=== PATIENT | male | born 1960 | race Two or more races ===

== ENCOUNTER 2018-09-03 10:00 | Day surgery (SDC) | payer OTHER ==
[~2018-09-03] VITALS: Ht 157.5 cm; Wt 103.0 kg
[2018-09-03 09:34] VITALS: BP 147/92
[~2018-09-03 10:00] MED LIST: LACTATED RINGERS 1,000 ML IV SCH; PLEASE ENTER ALLERGIES MC SCH; PLEASE ENTER HEIGHT AND WEIGHT MC SCH
[2018-09-03] MEDS ORDERED: METF850T10 PO (10:05)
[2018-09-03] MEDS ORDERED: HYDR12.517 PO (10:05)
[2018-09-03] MEDS ORDERED: LOVA40TA2 PO (10:05)
[2018-09-03] MEDS ORDERED: NULYTELY (10:05)
[2018-09-03] MEDS ORDERED: LISI-170 PO (10:05)
[2018-09-03 10:36] LABS: ALANINE AMINOTRANSFERASE 28 U/L (12-78); ALBUMIN 3.4 g/dL (3.4-5.0); ANION GAP 6 mmol/L (5-15); CALCIUM 8.7 mg/dL (8.5-10.1); CHLORIDE 110 mmol/L (98-107); CREATININE 0.64 mg/dL (0.7-1.3)
[2018-09-03 10:38] LABS: ALKALINE PHOSPHATASE 83 U/L (45-117); BILIRUBIN,TOTAL 0.3 mg/dL (0.2-1.0); TOTAL PROTEIN 7.3 g/dL (6.4-8.2)
[2018-09-03] MEDS ORDERED: PROPOFOL 10 MG/ML, 50ML ONE (10:48)
[2018-09-03] MEDS ORDERED: CEFAZOLIN 1,000 MG ONE (10:48)
[2018-09-03] MEDS ORDERED: LABETALOL 5MG/ML, 20ML IV PRN (11:00)
[2018-09-03] MEDS ORDERED: ONDANSETRON 2MG/ML, 2ML IV PRN (11:00)
[2018-09-03] MEDS ORDERED: METOPROLOL 1 MG/ML, 5ML IV PRN (11:00)
[2018-09-03] MEDS ORDERED: FENTANYL PF 100 MCG/2ML IV PRN (11:00)
[2018-09-03] MEDS ORDERED: hydrALAzine 20 MG/ML, 1ML IV PRN (11:00)
== END 2018-09-03 13:35 | disposition home or self-care (01) ==
LOC: OUT 10:00
PROVIDERS: ATTEND Internal Medicine
DX: K63.89 Other specified diseases of intestine (principal); C96.9 Malignant neoplasm of lymphoid, hematopoietic and related tissue, unspecified; E11.9 Type 2 diabetes mellitus without complications; I10 Essential (primary) hypertension; E78.5 Hyperlipidemia, unspecified; G47.33 Obstructive sleep apnea (adult) (pediatric); Z79.84 Long term (current) use of oral hypoglycemic drugs
CPT/HCPCS: 36415; 45392; 80053; 88172; 88173; 88305; J0690; J2704; J7120

== ENCOUNTER 2021-04-21 12:50 | Outpatient (CLI) | payer MEDICAID, OTHER ==
[~2021-04-21 12:50] MED LIST changes: +HYDR12.517 PO; -LACTATED RINGERS 1,000 ML IV SCH; +LISI-170 PO; +LOVA40TA2 PO; +METF850T10 PO; +NULYTELY; -PLEASE ENTER ALLERGIES MC SCH; -PLEASE ENTER HEIGHT AND WEIGHT MC SCH
[2021-04-21] MEDS ORDERED: LIDOCAINE 1%, 10ML ONE (12:59)
== END 2021-04-21 23:59 | disposition home or self-care (01) ==
LOC: RAD 12:50
PROVIDERS: ATTEND Internal Medicine Hematology & Oncology
DX: R18.0 Malignant ascites (principal); C20 Malignant neoplasm of rectum; D50.9 Iron deficiency anemia, unspecified; Z79.899 Other long term (current) drug therapy; Z72.89 Other problems related to lifestyle
CPT/HCPCS: 49083; 88112; 88305; J3490